=== PATIENT | male | born 1995 | race Hispanic/Latino ===

== ENCOUNTER 2021-10-08 12:24 | Emergency (ER) | payer SELFPAY ==
[~2021-10-08] VITALS: Ht 160 cm; Wt 68.0 kg
[2021-10-08] MEDS ORDERED: CEPHALEXIN 500 MG CAPSULE PO SCH (13:00)
[2021-10-08] MEDS ORDERED: LIDOCAINE 1%-EPI 1:100,000 20 ML VIAL IJ SCH (13:00)
[2021-10-08] MEDS ORDERED: HYDROCODONE/ACETAMINOPHEN 10/325 MG TAB PO SCH (13:00)
[2021-10-08] MEDS ORDERED: TETANUS/DIPHTHERIA TOXOID [ADULT] 0.5 ML VIAL IM SCH (13:00)
[2021-10-08] MEDS ORDERED: CEPH500B PO (14:00)
[2021-10-08 14:26] VITALS: BP 116/79
== END 2021-10-08 14:36 | disposition home or self-care (01) ==
LOC: EDH 12:24
DX: S61.214A Laceration without foreign body of right ring finger without damage to nail, initial encounter (principal); S01.112A Laceration without foreign body of left eyelid and periocular area, initial encounter; S80.211A Abrasion, right knee, initial encounter; H01.8 Other specified inflammations of eyelid; W23.0XXA Caught, crushed, jammed, or pinched between moving objects, initial encounter; X58.XXXA Exposure to other specified factors, initial encounter; Y93.89 Activity, other specified; Y92.89 Other specified places as the place of occurrence of the external cause; Y99.8 Other external cause status
CPT/HCPCS: 12001; 12013; 73130; 90471; 90714; 99283; J3490

== ENCOUNTER 2024-05-09 20:32 | Emergency (ER) | payer BC ==
[~2024-05-09] VITALS: Ht 160 cm; Wt 72.6 kg
[~2024-05-09 20:32] MED LIST: CEPH500B PO
[2024-05-09 21:25] VITALS: BP 133/81; PULSE 77; RESP 20; O2SAT 99
== END 2024-05-09 21:25 | disposition home or self-care (01) ==
LOC: EDH 20:32
DX: T16.2XXA Foreign body in left ear, initial encounter (principal); W44.E9XA Other non-magnetic metal objects entering into or through a natural orifice, initial encounter; Y93.89 Activity, other specified; Y92.89 Other specified places as the place of occurrence of the external cause; Y99.8 Other external cause status